=== PATIENT | male | born 1985 | race Caucasian/White ===

== ENCOUNTER 2023-06-21 22:29 | Observation (INO) ==
[2023-06-22] MEDS ORDERED: Vancomycin 1,250 MG in NS 0.9% 250 ml 250 ML IVPB ONE (00:59)
[2023-06-22 01:45] LABS: ABS Basophils 0.1 10^3/uL (0.0-0.1); ABS Eosinophils 0.1 10^3/uL (0.0-0.5); ABS Lymphocytes 1.5 10^3/uL (1.0-4.8); ABS Monocytes 0.7 10^3/uL (0.0-1.1); ABS Neutrophils 4.9 10^3/uL (1.5-7.6); Eosinophil % 1.9 %; Hematocrit 36.4 % (38-53); Hemoglobin 12.4 g/dL (13.2-16.3); Mean Corpuscular Volume 88.3 fL (80-97); Mean Platelet Volume 6.6 fL (7.5-11.2); Platelet Count 298 10^3/uL (150-450); Red Blood Count 4.12 10^6/uL (4.06-5.63); Red Cell Distribution Width 13.7 % (12-17); White Blood Count 7.3 10^3/uL (3.6-10.2)
[2023-06-22 01:50] LABS: INR 1.14 (0.83-1.13)
[2023-06-22 02:57] LABS: Albumin 3.6 g/dL (3.2-5.2); Albumin/Globulin Ratio 0.9 (1-3); C Reactive Protein 20.07 mg/L (<8.01); Calcium 8.9 mg/dL (8.6-10.3); Creatinine, Serum 0.89 mg/dL (0.67-1.17); Globulin 4.1 g/dL (2-4); Potassium 4.2 mmol/L (3.5-5.0); Total Bilirubin 0.4 mg/dL (0.2-1.0); Total Protein 7.7 g/dL (6.4-8.9); eGFR CKD-EPI 114.6 (>60)
[2023-06-22 03:00] LABS: Erythrocyte Sed Rate 45 mm/Hr (0-14)
[2023-06-22] MEDS ORDERED: Vancomycin per Pharmacy 1 EA NOTE FOLLOW UP SCH (07:00)
[2023-06-22] MEDS ORDERED: Vancomycin 1,250 MG in NS 0.9% 250 ml 250 ML IVPB SCH (09:30)
[2023-06-22 10:37] VITALS: BP 133/83
[2023-06-22] MEDS ORDERED: Vancomycin 1,000 MG in NS 0.9% 250 ml 250 ML IVPB ONE (12:00)
[2023-06-22 12:58] LABS: Hepatitis C Antibody Reactive (Negative)
[2023-06-22 14:41] LABS: HIV 4th Generation Nonreactive (Nonreactive)
[2023-06-23] MEDS ORDERED: Vancomycin Trough Check NOTE FOLLOW UP ONE (09:00)
== END 2023-06-22 15:55 ==
LOC: EDHOLD 22:29 → ED 22:29 → SUATTDRO 06-22 06:05 → MED 06-22 08:33
PROVIDERS: ADMIT Student in an Organized Health Care Education/Training Program; ATTEND Internal Medicine